=== PATIENT | female | born 1930 | race Caucasian/White ===

== ENCOUNTER 2016-11-01 21:26 | Inpatient (IN) | payer MEDICARE ==
--- NOTE | 2016-11-01 21:49 | Emergency Department Record ---
History of Present Illness - General Chief complaint: GI Bleed Stated complaint: BLOODY STOOL Time Seen by Provider: 11/01/16 21:29 Source: Patient Mode of Arrival: EMS Limitations: No limitations - History of Present Illness Initial comments: 86 yo female presents to ED with a CC of (1) episode of bright red bleeding from the rectum tonight. Patient denies the use of anticoagulation medications , and patient denies abdominal pain symptoms, fevers, chills, or recent illness. Patient does have a history of dementia, history is difficult to obtain. MD complaint: Gross hematochezia Onset/Timin -: Hour(s) Quality: Painless Consistency: Intermittent Improves with: None Worsens with: Bowel movement Associated Symptoms: Denies other symptoms Treatments Prior to Arrival: None - Related Data Home Medications Medication Instructions Recorded Confirmed Last Taken Allopurinol [Zyloprim] 100 mg PO DAILY 09/16/16 11/01/16 1 Day Ago Donepezil HCl 10 mg PO DAILY 09/16/16 11/01/16 1 Day Ago Fosinopril Sodium [Monopril] 20 mg PO DAILY 09/16/16 11/01/16 1 Day Ago Metoprolol Succinate [Toprol Xl] 50 mg PO DAILY 09/16/16 11/01/16 1 Day Ago Rivaroxaban [Xarelto] 15 mg PO DAILY 09/16/16 11/01/16 1 Day Ago Sertraline HCl [Zoloft] 50 mg PO DAILY 09/16/16 11/01/16 1 Day Ago Acetaminophen [Tylenol 325Mg] 325 mg PO Q4H 11/01/16 11/01/16 Unknown Ergocalciferol (Vitamin D2) 1.25 mg PO WEEKLY 11/01/16 11/01/16 Unknown [Vitamin D2] Furosemide 40 mg PO DAILY 11/01/16 11/01/16 Unknown Allergies Allergy/AdvReac Type Severity Reaction Status Date / Time No Known Drug Allergies Allergy Verified 09/16/16 11:51 Review of Systems ROS unobtainable: Due to mental status, Other (History of dementia) Gastrointestinal: Reports: Hematochezia Past Medical History - SOCIAL HISTORY Smoking Status: Never smoker Drug Use: None - RESPIRATORY Hx Respiratory Disorders: No - CARDIOVASCULAR Hx Hypertension: Yes Hx Irregular Heartbeat: Yes - NEURO Hx Dementia: Yes - GI Hx GI Disorders: No - Hx Genitourinary Disorders: No - ENDOCRINE Hx Diabetes: No Hx Thyroid Disease: No - MUSCULOSKELETAL Hx Arthritis: Yes Hx Gout: Yes - PSYCH Hx Depression: Yes - HEMATOLOGY/ONCOLOGY Hx Anemia: No Hx Blood Disorders: No Hx Bruising: No Hx Cancer: Yes (breast) Physical Exam - General General Appearance: Alert, Cooperative, No acute distress Limitations: Altered mental status, Other (history of dementia) - Head Head exam: Atraumatic, Normocephalic, Normal inspection Head exam detail: negative: Abrasion, Contusion, Kaur's sign, General tenderness, Hematoma, Laceration - Eye Eye exam: Normal appearance. negative: Conjunctival injection, Periorbital swelling, Periorbital tenderness, Scleral icterus - ENT Ear exam: negative: Auricular hematoma, Auricular trauma Nasal Exam: negative: Active bleeding, Discharge, Dried blood, Foreign body Mouth exam: negative: Drooling, Laceration, Muffled voice, Tongue elevation - Neck Neck exam: Normal inspection. negative: Meningismus, Tenderness - Respiratory Respiratory exam: Normal lung sounds bilaterally. negative: Respiratory distress, Rhonchi, Stridor, Wheezes - Cardiovascular Cardiovascular Exam: Regular rate, Normal rhythm, Normal heart sounds, Systolic murmur - GI/Abdominal GI/Abdominal exam: Soft. negative: Rebound, Rigid, Tenderness - Rectal Rectal exam: Heme (-) stool, Normal inspection, Normal rectal tone, Tenderness. negative: Hemorrhoids - exam: Deferred - Extremities Extremities exam: negative: Calf tenderness, Pedal edema, Tenderness - Back Back exam: Denies: CVA tenderness (R), CVA tenderness (L) - Neurological Neurological exam: Alert. negative: Motor sensory deficit - Psychiatric Psychiatric exam: Normal affect, Normal mood - Skin Skin exam: Normal color. negative: Abrasion Type of lesion: negative: abrasion Course - Reevaluation(s) Reevaluation #1: 11/01/16 22:28 Labs reviewed, Hgb 11.2 (slightly down from previous 11.8), BUN and Creatinine are elevated but at the patient's baseline. INR 1.5 (on Xarelto). Labs were reviewed, will admit for observation given her anticoagulated status and higher risk of re-bleeding. DPOA was updated on the plan for admission and agrees with the plan as discussed. Reevaluation #2: 11/01/16 22:42 EKG: NSR 56 Low voltage anterior leads Q waves V1-V2, No acute ST-T wave changes. Reevaluation #3: 11/02/16 07:07 Case was discussed with Dr. Scott, will accept admission for further evaluation. Medical Decision Making - Lab Data Result diagrams: 11/02/16 06:00 11/01/16 21:35 Disposition Disposition: Admit Clinical Impression: Lower GI bleed, Anticoagulated by anticoagulation treatment CRF (chronic renal failure) Qualifiers: Chronic kidney disease stage: stage 4 (severe) Qualified Code(s): N18.4 - Chronic kidney disease, stage 4 (severe) Disposition: Still a Patient at [facility] Decision to Admit: Admit from ER Decision to Admit Date: 11/01/16 Decision to Admit Time: 22:30 Time of Disposition: 22:30
[2016-11-01 21:54] LABS: BASO % 0.6 % (0-6); EOS % 4.5 % (0-6); GRAN % 64.6 % (47-80); HEMATOCRIT 34.8 % (35.0-47.0); HEMOGLOBIN 11.2 gm/dl (11.6-16.0); LYMPH % 21.4 % (16-45); MEAN CELL VOLUME 93.8 fl (81-97); MEAN CORPUSCULAR HEMOGLOBIN 30.1 pg (27-33); MEAN CORPUSCULAR HGB CONC 32.2 g/dl (32-36); MEAN PLATELET VOLUME 10.5 fl (7.4-10.4); MONO % 8.9 % (0-9); PLATELET COUNT 154 K/uL (130-400); RED BLOOD COUNT 3.71 M/uL (3.80-5.40); RED CELL DISTRIBUTION WIDTH 15.1 % (11.5-14.5)
[2016-11-01 22:04] LABS: INR 1.5; PROTHROMBIN TIME (PATIENT) 16.9 SECONDS (9.5-12.1)
[2016-11-01 22:05] LABS: ALB/GLOB RATIO 1.3 (1.1-1.8); ANION GAP 12.1 (7-16); BILIRUBIN,TOTAL 0.47 mg/dL (0.2-1.3); CARBON DIOXIDE 19.9 mmol/L (22-30); CREATININE 1.9 mg/dL (0.52-1.04); TOTAL PROTEIN 7.1 gm/dL (6.3-8.2)
[2016-11-02 06:10] LABS: BASO % 0.4 % (0-6); EOS % 5.6 % (0-6); GRAN % 62.6 % (47-80); HEMATOCRIT 33.2 % (35.0-47.0); HEMOGLOBIN 10.9 gm/dl (11.6-16.0); MEAN CELL VOLUME 93.5 fl (81-97); MEAN CORPUSCULAR HEMOGLOBIN 30.7 pg (27-33); MEAN CORPUSCULAR HGB CONC 32.8 g/dl (32-36); MEAN PLATELET VOLUME 10.7 fl (7.4-10.4); MONO % 8.4 % (0-9); PLATELET COUNT 140 K/uL (130-400); RED BLOOD COUNT 3.55 M/uL (3.80-5.40); RED CELL DISTRIBUTION WIDTH 14.9 % (11.5-14.5); WHITE BLOOD COUNT W/O DIFF 8.2 K/uL (4.2-12.2)
[2016-11-02] MEDS: FUROSEMIDE 40 MG TABLET PO SCH (09:34)
[2016-11-02] MEDS: DONEPEZIL HCL 5 MG TABLET PO SCH (09:34)
[2016-11-02] MEDS: METOPROLOL SUCC 50 MG TABLET PO SCH (09:34)
[2016-11-02] MEDS: SERTRALINE HCL 50 MG TABLET PO SCH (09:35)
[2016-11-02] MEDS ORDERED: FOSINOPRIL SODIUM 20 MG TABLET PO SCH (10:00)
[2016-11-02 15:22] LABS: HEMATOCRIT 33.5 % (35.0-47.0); HEMOGLOBIN 10.7 gm/dl (11.6-16.0)
[2016-11-02 23:49] LABS: HEMATOCRIT 33.4 % (35.0-47.0); HEMOGLOBIN 10.8 gm/dl (11.6-16.0)
[2016-11-03 06:29] LABS: HEMATOCRIT 32.5 % (35.0-47.0); HEMOGLOBIN 10.5 gm/dl (11.6-16.0)
[2016-11-03] MEDS ORDERED: PATIENT OWN MED: PO PRN (07:32)
--- NOTE | 2016-11-03 08:21 | History and Physical Report ---
CHIEF COMPLAINT: Lower GI bleed, gross hematochezia. HISTORY OF PRESENT ILLNESS: This 86-year-old female states she had one episode of bright red blood in the stool that she flushed before EMS got there. She presented to the Emergency Department. She denied taking anticoagulants, however, Xarelto is in her med list. She is a poor historian because of dementia. She denies abdominal pain, fever, chills, or recent illness. The rectal exam in the Emergency Department was negative for hemoccult stools, however, nursing was with her and she had one stool that had some blood in the stool which was heme positive. She has no abdominal pain on my examination. She was admitted to the hospital for serial hemoglobins and further evaluation by GI. PAST MEDICAL HISTORY: Dementia, gout, and hypertension. She is on Xarelto, I am not sure of the reason at this time, and we will have to look at the office chart. PAST SURGICAL HISTORY: MEDICATIONS ON ADMISSION: Zyloprim 100 mg q daily, Aricept 10 mg daily, Monopril 20 mg q daily, Toprol XL 50 mg daily, Xarelto 15 mg q daily, Zoloft 50 mg q daily, Tylenol 325 q four hours prn, vitamin D 50,000 units weekly, and Lasix 40 mg q daily. ALLERGIES: No known drug allergies. FAMILY/PSYCHOSOCIAL HISTORY: Unremarkable. REVIEW OF SYSTEMS: HEENT: No upper respiratory infectious symptoms, cough, cold, or congestion. Cardiovascular: No chest pain, palpitations, or arrhythmias. Respiratory: No cough, cold, or congestion. Gastrointestinal: No abdominal pain, but she states she had one bloody stool and she had a bloody stool for nursing which was bright red but not much blood in the stool. Genitourinary: No dysuria, hematuria, frequency, or burning on urination. Musculoskeletal: No joint or bone abnormalities. She does have arthritis in all of her joints. Neurologic: No CVA, paralysis, or paresthesias. She has dementia. She is oriented to person, but not time. She is oriented to place. Gynecological: No abnormal lumps in her breasts or vaginal bleeding. Endocrine : No diabetes or thyroid disease. Integument: No rash, ulcers, change in moles, or yellow skin. PHYSICAL EXAMINATION: Height is 5'6", weight is 200 pounds. Vital signs: Temperature is 97.7, pulse is 55, blood pressure is 132/70, respiratory rate is 20, pulse ox is 95% on room air. HEENT: Pupils are equal, round and reactive to light and accommodation. Extraocular muscles are intact. Throat is clear. Nose is clear. Tympanic membranes are bermudez. NECK: Supple. No jugular venous distention. No hepatojugular reflex. No carotid bruits. Thyroid is smooth. CARDIOVASCULAR: Regular rate and rhythm without murmurs, clicks, rubs or gallops. RESPIRATORY: Clear to auscultation and percussion. ABDOMEN: Soft, nontender. No hepatosplenomegaly. No masses. No tenderness. Bowel sounds are active. No bruits. EXTREMITIES: No pitting edema. No cyanosis. No clubbing. Full range of motion. Peripheral pulses are good. BREASTS: Deferred. GYNECOLOGICAL: Deferred. RECTAL: There is blood on the examining glove. No obvious hemorrhoids. She states she has had problems with rectal prolapse in the past. Vaginal area examined, no blood coming from the vagina. NEUROLOGIC: Cranial nerves II through XII intact. No gross defects. Sensation normal. Strength normal. Deep tendon reflexes equal bilaterally. Babinski's negative. MENTAL STATUS: Alert and oriented times three. IMPRESSION: 1. LOWER GI BLEED. 2. HYPERTENSION. 3. USES XARELTO. 4. DEMENTIA. 5. GOUT. PLAN: Serial hemoglobin and hematocrit, GI consult, possible colonoscopy. ADDENDUM: The patient should have in the past medical history chronic atrial fibrillation and chronic renal failure and she is on Xarelto for her chronic atrial fibrillation. 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 Slim Scott D.O. JOB NUMBER: [id number] [facility]
[2016-11-03] MEDS ORDERED: PROPOFOL 10 MG/ML VIAL IV ONE (14:00)
[2016-11-03] MEDS ORDERED: LIDOCAINE 2% MDV (20MG/ML) 20ML VIAL IV ONE (14:00)
[2016-11-03] MEDS: DONEPEZIL HCL 5 MG TABLET PO SCH (17:15)
[2016-11-03] MEDS: FUROSEMIDE 40 MG TABLET PO SCH (17:15)
[2016-11-03] MEDS: METOPROLOL SUCC 50 MG TABLET PO SCH (17:16)
[2016-11-03] MEDS: SERTRALINE HCL 50 MG TABLET PO SCH (17:16)
[2016-11-03 22:18] LABS: HEMATOCRIT 34.6 % (35.0-47.0)
[2016-11-04 06:20] LABS: HEMATOCRIT 34.2 % (35.0-47.0)
[2016-11-04] MEDS: DONEPEZIL HCL 5 MG TABLET PO SCH (10:00)
[2016-11-04] MEDS: METOPROLOL SUCC 50 MG TABLET PO SCH (10:01)
[2016-11-04] MEDS: FUROSEMIDE 40 MG TABLET PO SCH (10:01)
[2016-11-04] MEDS: SERTRALINE HCL 50 MG TABLET PO SCH (10:01)
--- NOTE | 2016-11-04 11:18 | Discharge Note ---
Discharge Note - Date Date of Discharge Note: 11/04/16 Disposition: Home, Self-Care Condition: (1) Good Additional Instructions: Use Preparation H Hemorrhoidal cream twice a day for one week follow up with Dr. Scott Nov 10, 2016 stop mary outpatient labs on Oct CBC, BMP Diag anemia, rectal bleeding, electrolye disorder and rn long term care meds Forms: Patient Portal Access
--- NOTE | 2016-11-04 12:10 | Medical Records Consult ---
DATE OF CONSULTATION: 11/03/2016 CHIEF COMPLAINT: Hematochezia. HISTORY OF PRESENT ILLNESS: The patient is a pleasant 86-year-old woman who presented with several episodes of hematochezia. This was noted on 11/01/2016 and into 11/02/2016. She denied any abdominal pain or rectal pain with these episodes. She denies any previous history. She denies any nausea, vomiting, constipation, or diarrhea. She denies any obvious exacerbating or remitting factors. PAST MEDICAL HISTORY: Dementia, hypertension, cardiac arrhythmia, depression, arthritis, gout, breast cancer. PAST SURGICAL HISTORY: Noncontributory. FAMILY HISTORY: Noncontributory. HOME MEDICATIONS: 1. Zyloprim. 2. Donepezil. 3. Monopril. 4. Toprol. 5. Xarelto. 6. Zoloft. 7. Tylenol. 8. Vitamin D. 9. Lasix. ALLERGIES: None. SOCIAL HISTORY: Denies tobacco or alcohol or illicit drugs. Travel history is noncontributory. REVIEW OF SYSTEMS: Per the admission H&P. PHYSICAL EXAMINATION: VITAL SIGNS: Blood pressure 150/70, pulse 52-56, respirations 18. She is afebrile. GENERAL: She is awake, alert. She is confused but otherwise pleasant. HEENT: Head is atraumatic, normocephalic. Extraocular muscles are intact. No conjunctival injection or scleral icterus. SKIN: Warm and dry. No pallor or jaundice noted. No rashes are seen. NECK: Supple. Trachea is midline. Thyroid was nonpalpable. HEART: Slightly bradycardic, otherwise regular. No murmurs readily noted. LUNGS: Clear to auscultation without rhonchi, rales, or wheezing. Normal percussion. ABDOMEN: Soft. Positive bowel sounds. No guarding, rebound, rigidity, tenderness, or palpable hepatosplenomegaly. EXTREMITIES: No clubbing, cyanosis, or edema. LABORATORY DATA: On admission, white count 9.0, hemoglobin 11.2, hematocrit 34.8, platelets 154, sodium 141, potassium 4.1, chloride 109, CO2 19.9, BUN 47, creatinine 1.9, glucose 111. PT was 16.9. IMPRESSION: 1. Hematochezia. 2. Possibly anorectal versus diverticular versus polyp versus mass versus AVM. 3. Dementia. 4. Hypertension by history. 5. Arrhythmia. 6. Gout. 7. Arthritis. RECOMMENDATION: Would monitor the hemoglobin serially, transfuse as necessary. We will plan for colonoscopy to evaluate her lower GI tract and assess for etiology. Further recommendations will be forthcoming once colonoscopy results are available. Magnus Gordon DO CC: Dr. Slim BORGES
--- NOTE | 2016-11-04 12:20 | Operative Note ---
DATE OF SURGERY: 11/03/2016 OPERATION: COLONOSCOPY with cold forceps polypectomy. PREOPERATIVE DIAGNOSIS: Hematochezia. POSTOPERATIVE DIAGNOSES: 1. Hemorrhoids, internal greater than external. 2. [id number] sigmoid diverticulosis. 3. Sigmoid colon polyp. 4. No active bleeding. PROCEDURE: After informed consent was obtained from the patient, she was placed in the left lateral decubitus position in the endoscopy suite, sedated and monitored by the department of anesthesia. Digital rectal exam was unremarkable. A well-lubricated [id number] colonoscope was inserted into the rectum and advanced to the cecum. Preparation quality was good to excellent. The cecum, glimpses of terminal ileum, ascending colon, transverse colon, and descending colon were unremarkable. No polyps, mass lesions, or inflammation was seen. No fresh or old blood was seen. There were a few scattered diverticula in the descending colon but there were severe diverticular changes in the sigmoid colon. There was also a 3-4 mm polyp in the sigmoid colon removed in piecemeal fashion with a cold forceps with minimal bleeding noted. The rectum was unremarkable in forward view but J-turn views did reveal internal greater than external hemorrhoids. The endoscope was straightened, the rectal ampulla deflated, and the endoscope was removed. It should be noted there was no active bleeding seen throughout the colon. No fresh or old blood was seen throughout the colon. At this point I presume the patient either had diverticular hemorrhage or perhaps even had hemorrhoidal source for her bleeding. No further intervention will be suggested at this time other than having the patient follow a high-fiber diet. As always, thank you for allowing me to participate in the health care of your patients. Magnus Gordon DO CC: Dr. Slim BORGES
--- NOTE | 2016-11-04 12:57 | Discharge Summary ---
DATE OF DISCHARGE: 11/04/2016 at 11:23 a.m. DISCHARGE DIAGNOSES: 1. Lower gastrointestinal bleed. 2. Hemorrhoidal bleeding. 3. A history of chronic atrial fibrillation which has converted to normal sinus rhythm. She was on Xarelto which is probably part of the reason for bleeding. We will stop the Xarelto at this time. 4. Dementia. 5. Gout. 6. Hypertension. 7. Chronic renal failure. 8. Osteoarthritis of the lumbar spine. ATTENDING PHYSICIAN: Slim Scott D.O. REASON FOR HOSPITALIZATION: Lower gastrointestinal bleed, gross hematochezia. HISTORY OF THE PRESENT ILLNESS: This 86-year-old female presented with one episode of bright red blood. The ambulance was called. She had already flushed the toilet before they got there. She was seen in the emergency room and was evaluated by Dr. [place]. She was admitted to the hospital for serial hemoglobins and further evaluation. She denied any abdominal pain, fever, chills, or recent illness. SIGNIFICANT FINDINGS FROM HER EXAMINATION: LABORATORY DATA: Her stool in the hospital was Hemoccult positive with a small amount of blood. Hemoglobin had dropped down from 11.2 in the emergency department to 10.8 and then rebounded up to 11. Her white blood cell count was 9,000. Potassium was 4.1. BUN was 47 and creatinine was 1.9. CONSULTATION: She had a consultation with GI. I prepped her for a colonoscopy. She had a colonoscopy performed which showed a polyp which was removed. She also had hemorrhoids which is most likely the source of her bleeding. HOSPITAL COURSE: Uneventful. She is improved and stable. CONDITION AT DISCHARGE: Much improved. Her discharge hemoglobin is 11.0. DISCHARGE INSTRUCTIONS: Follow up with Dr. Scott on November 10 at about 10: 00 a.m. Stop her Xarelto. Outpatient labs with a complete blood count and a basic metabolic profile on November 08. We may be able to stop the Lasix. We will have to watch her blood pressure and for any peripheral edema. MEDICATIONS ON DISCHARGE: 1. Aricept 10 mg q. h.s. 2. Lasix 40 mg q. daily, 3. Toprol-XL 50 mg q. daily. 4. Zoloft 50 mg q. daily. 5. Monopril 20 mg q. daily. 6. Vitamin D 50,000 units one weekly. 7. Zyloprim 100 mg q. daily. 8. Use Preparation H cream twice a day for her hemorrhoids [id number]. Slim Scott D.O. Date Time JOB NUMBER: [id number] [facility]TD[facility]
== END 2016-11-04 13:19 | disposition home or self-care (01) | DRG 379 ==
LOC: ER 21:26 → OBSVTOIN 23:00 → MEDSURG 23:00
PROVIDERS: ADMIT Emergency Medicine; ATTEND Emergency Medicine
PROC: 0DBN8ZZ Excision of Sigmoid Colon, Via Natural or Artificial Opening Endoscopic (ICD-10-PCS; principal; 2016-11-03)
DX: K92.1 Melena (principal); T45.515A Adverse effect of anticoagulants, initial encounter; I10 Essential (primary) hypertension; K64.8 Other hemorrhoids; D12.5 Benign neoplasm of sigmoid colon; K57.30 Diverticulosis of large intestine without perforation or abscess without bleeding; I48.2 Chronic atrial fibrillation; Z79.01 Long term (current) use of anticoagulants; N18.9 Chronic kidney disease, unspecified; M47.9 Spondylosis, unspecified; M10.9 Gout, unspecified; F03.90 Unspecified dementia, unspecified severity, without behavioral disturbance, psychotic disturbance, mood disturbance, and anxiety
CPT/HCPCS: 80053; 82272; 85014; 85018; 85025; 85610; 93005; 93010; 99285

== ENCOUNTER 2017-06-04 17:31 | Observation (INO) | payer MEDICARE ==
--- NOTE | 2017-06-04 18:18 | Emergency Department Record ---
History of Present Illness - General Chief Complaint: Altered Mental Status Stated Complaint: ALTERNED LEVEL CONSCIENESS Time Seen by Provider: 06/04/17 18:07 Source: Family, EMS, Old records reviewed Mode of Arrival: Ambulatory Limitations: Altered mental status - History of Present Illness Initial Comments: pt brought in by ems because nighttime caregiver came and found pt to be hard to arouse and decreased loc. when pt arrived in dept she was more alert, sitting up in bed but confused. pt denies pain. pt was d/w pts granddaughter who is her poa and she said pt is more confused over the last 2 weeks. pt lives alone and has alzheimers. MD Complaint: Altered mental status Onset/Timin -: Unknown Consistency: Other (getting better) Associated Symptoms: Denies other symptoms, Malaise, Weakness Treatments Prior to Arrival: IV fluid - [place] Coma Scale Eye Response: (4) Open spontaneously Motor Response: (6) Obeys commands Verbal Response: (4) Confused conversation [place] Total: 14 - Symptoms of Stroke Symptoms of stroke: Onset of Confusion, Unable to Think Clearly - Related Data Home Medications Medication Instructions Recorded Confirmed Last Taken Allopurinol [Zyloprim] 200 mg PO DAILY 09/16/16 06/04/17 1 Day Ago ~09/15/16 Donepezil HCl 10 mg PO DAILY 09/16/16 06/04/17 1 Day Ago ~09/15/16 Fosinopril Sodium [Monopril] 20 mg PO DAILY 09/16/16 06/04/17 1 Day Ago ~09/15/16 Metoprolol Succinate [Toprol Xl] 50 mg PO DAILY 09/16/16 06/04/17 1 Day Ago ~09/15/16 Sertraline HCl [Zoloft] 50 mg PO DAILY 09/16/16 06/04/17 1 Day Ago ~09/15/16 Acetaminophen [Tylenol 325Mg] 325 mg PO BID 11/01/16 06/04/17 Unknown Ergocalciferol (Vitamin D2) 1.25 mg PO WEEKLY 11/01/16 06/04/17 Unknown [Vitamin D2] Furosemide 40 mg PO DAILY 11/01/16 06/04/17 Unknown Allergies Allergy/AdvReac Type Severity Reaction Status Date / Time No Known Drug Allergies Allergy Verified 09/16/16 11:51 Travel Screening - Travel/Exposure Within Last 30 Days Have you traveled within the last 30 days?: No - Travel/Exposure Within Last Year Have you traveled outside the [place] in the last year?: No - Additonal Travel Details Have you been exposed to anyone with a communicable illness?: No Review of Systems ROS unobtainable: Due to mental status Past Medical History - SOCIAL HISTORY Smoking Status: Never smoker Alcohol Use: None Drug Use: None - RESPIRATORY Hx Respiratory Disorders: No - CARDIOVASCULAR Hx Cardio Disorders: Yes Hx Hypertension: Yes Hx Irregular Heartbeat: Yes - NEURO Hx Neuro Disorders: Yes Hx Dementia: Yes - GI Hx GI Disorders: No Comment:: rectal prolapse - Hx Genitourinary Disorders: No - ENDOCRINE Hx Endocrine Disorders: No Hx Diabetes: No Hx Thyroid Disease: No - MUSCULOSKELETAL Hx Musculoskeletal Disorders: Yes Hx Arthritis: Yes Hx Gout: Yes - PSYCH Hx Psych Problems: Yes Hx Depression: Yes - HEMATOLOGY/ONCOLOGY Hx Hematology/Oncology Disorders: No Hx Anemia: No Hx Blood Disorders: No Hx Bruising: No Hx Cancer: Yes (breast) Family Medical History Any Significant Family History?: No Physical Exam - General General Appearance: Alert, Mild distress - Head Head exam: Normal inspection - Eye Eye exam: Normal appearance, PERRL, EOMI Pupils: Normal accommodation - ENT ENT exam: Normal exam, Mucous membranes moist, Normal external ear exam, Normal orophraynx Ear exam: Normal external inspection. negative: External canal tenderness Nasal Exam: Normal inspection. negative: Discharge, Sinus tenderness Mouth exam: Normal external inspection, Tongue normal Teeth exam: Normal inspection. negative: Dental caries Throat exam: Normal inspection. negative: Tonsillar erythema, Tonsillar exudate - Neck Neck exam: Normal inspection, Full ROM. negative: Tenderness - Respiratory Respiratory exam: Normal lung sounds bilaterally. negative: Respiratory distress - Cardiovascular Cardiovascular Exam: Regular rate, Normal rhythm, Normal heart sounds - GI/Abdominal GI/Abdominal exam: Soft, Normal bowel sounds. negative: Tenderness - Rectal Rectal exam: Deferred - exam: Deferred - Extremities Extremities exam: Normal inspection, Full ROM, Normal capillary refill. negative: Tenderness - Back Back exam: Reports: Normal inspection, Full ROM. Denies: Muscle spasm, Rash noted, Tenderness - Neurological Neurological exam: Altered, CN II-XII intact - Psychiatric Psychiatric exam: Normal affect, Normal mood - Skin Skin exam: Dry, Intact, Normal color, Warm Course Vital Signs 06/04/17 17:37 Temperature 98.3 F Pulse Rate 66 Respiratory 18 Rate Blood Pressure 167/88 Pulse Ox 100 Medical Decision Making - Lab Data Result diagrams: 06/04/17 18:00 06/04/17 18:00 Disposition Disposition: Admit Clinical Impression: Altered level of consciousness Disposition: Still a Patient at [facility] Decision to Admit: Admit from ER Decision to Admit Date: 06/04/17 Decision to Admit Time: 19:23 Forms: Patient Portal Access Quality - Quality Measures Quality Measures: N/A - Blood Pressure Screening Blood Pressure Classification: Pre-Hypertensive BP Reading Systolic Measurement: 167 Diastolic Measurement: 88 Screening for High Blood Pressure: < First Hypertensive BP, F/U Documented > [ [id number]] First Hypertensive Follow-up Interventions: Follow-up with rescreen GT 1 day and LT 4 weeks.
[2017-06-04 18:26] LABS: BASO % 0.3 % (0-6); EOS % 3.4 % (0-6); GRAN % 74.4 % (47-80); HEMATOCRIT 36.5 % (35.0-47.0); HEMOGLOBIN 11.8 gm/dl (11.6-16.0); LYMPH % 13.9 % (16-45); MEAN CELL VOLUME 93.1 fl (81-97); MEAN CORPUSCULAR HEMOGLOBIN 30.1 pg (27-33); MEAN CORPUSCULAR HGB CONC 32.3 g/dl (32-36); MEAN PLATELET VOLUME 11.1 fl (7.4-10.4); PLATELET COUNT 164 K/uL (130-400); RED BLOOD COUNT 3.92 M/uL (3.80-5.40); WHITE BLOOD COUNT W/O DIFF 9.6 K/uL (4.2-12.2)
[2017-06-04 18:37] LABS: ALB/GLOB RATIO 1.2 (1.1-1.8); ANION GAP 8.9 (7-16); BILIRUBIN,TOTAL 0.99 mg/dL (0.2-1.3); CARBON DIOXIDE 21.1 mmol/L (22-30); CREATININE 1.7 mg/dL (0.52-1.04); TOTAL PROTEIN 7.3 gm/dL (6.3-8.2)
[2017-06-04] MEDS ORDERED: 0.9 % SODIUM CHLORIDE 1,000 ML BAG IV ONE (19:19)
[2017-06-04 19:26] LABS: AMPHETAMINE SCREEN URINE NOT DETECTED; BARBITURATE SCREEN URINE NOT DETECTED; BENZODIAZEPINE SCREEN URINE NOT DETECTED; COCAINE SCREEN URINE NOT DETECTED; METHADONE SCREEN URINE NOT DETECTED; METHAMPHETAMINE SCREEN NOT DETECTED; OPIATE SCREEN URINE NOT DETECTED; OXYCODONE SCREEN URINE NOT DETECTED; PHENCYCLIDINE SCREEN URINE NOT DETECTED; PROPOXYPHENE SCREEN URINE NOT DETECTED; THC SCREEN URINE NOT DETECTED; TRICYCLIC ANTIDEPRESSANT SCRN NOT DETECTED
[2017-06-04 19:26] LABS: URINE APPEARANCE CLEAR; URINE BILIRUBIN NEGATIVE (NEGATIVE); URINE BLOOD NEGATIVE (NEGATIVE); URINE COLOR YELLOW; URINE GLUCOSE (UA) NEGATIVE (NEGATIVE); URINE KETONE NEGATIVE (NEGATIVE); URINE LEUKOCYTE ESTERASE NEGATIVE (NEGATIVE); URINE NITRITE NEGATIVE (NEGATIVE); URINE UROBILINOGEN 0.2 E.U./dL (0.20 - 1.00)
[2017-06-05] MEDS: ACETAMINOPHEN 325 MG TAB PO SCH ×2 (02:35→09:24)
--- NOTE | 2017-06-05 07:44 | CT SCAN REPORT ---
EXAM: CT SCAN OF THE BRAIN WITHOUT CONTRAST HISTORY: CONFUSION AND ALTERED MENTAL STATUS. TECHNIQUE: Standard CT imaging of the brain was performed without contrast. Additional coronal and sagittal reformatted images were also performed. Comparison: 09/16/16. FINDINGS: There is mild atrophy. The ventricles and cortical sulci are otherwise normal. Mild chronic small vessel ischemic changes are present within the periventricular and subcortical white matter at both cerebral hemispheres and appear unchanged. There is no mass, mass effect, intracranial hemorrhage, visible acute infarct, or abnormal extraaxial fluid. The skull is intact. The orbits and sinuses are normal. There is a small amount of nonspecific fluid within the right mastoid air cells which appears unchanged. IMPRESSION: 1. NO ACUTE INTRACRANIAL ABNORMALITY OR SKULL FRACTURE. 2. MILD ATROPHY AND CHRONIC SMALL VESSEL ISCHEMIC CHANGES. JOB NUMBER: [id number] [facility]
[2017-06-05] MEDS ORDERED: CLONIDINE TTS-0.1MG PATCH TD SCH (08:15)
[2017-06-05] MEDS ORDERED: DONEPEZIL HCL 5 MG TABLET PO SCH (10:00)
[2017-06-05] MEDS ORDERED: SERTRALINE HCL 50 MG TABLET PO SCH (10:00)
[2017-06-05] MEDS ORDERED: METOPROLOL SUCC 50 MG TABLET PO SCH (10:00)
[2017-06-05] MEDS ORDERED: ALLOPURINOL 100 MG TAB PO SCH (10:00)
[2017-06-05] MEDS ORDERED: FUROSEMIDE 40 MG TABLET PO SCH (10:00)
[2017-06-05] MEDS ORDERED: FOSINOPRIL SODIUM 20 MG TABLET PO SCH (10:00)
--- NOTE | 2017-06-05 13:09 | Discharge Note ---
VTE H&P Assessment - Risk for VTE Risk for VTE: Yes Risk Level: Very Low Risk Assessment Date: 06/05/17 Risk Assessment Time: 08:15 VTE Orders Placed or Will Be Placed: No VTE Reason for No Prophylaxis: Not Indicated (not in the hospital long enough) Discharge Medications - Discharge Medications Prescriptions: Clonidine Tts-1 [Catapres] 1 each TD Q7D #4 Sertraline HCl [Zoloft] 25 mg PO DAILY #30 tablet Home Medications: Ambulatory Orders Allopurinol [Zyloprim] 200 mg PO DAILY 09/16/16 [Last Taken 1 Day Ago ~09/15/16] Donepezil HCl 10 mg PO DAILY 09/16/16 [Last Taken 1 Day Ago ~09/15/16] Fosinopril Sodium [Monopril] 20 mg PO DAILY 09/16/16 [Last Taken 1 Day Ago ~] Metoprolol Succinate [Toprol Xl] 50 mg PO DAILY 09/16/16 [Last Taken 1 Day Ago ~ 09/15/16] Acetaminophen [Tylenol 325Mg] 325 mg PO BID 11/01/16 [Last Taken Unknown] Ergocalciferol (Vitamin D2) [Vitamin D2] 1.25 mg PO WEEKLY 11/01/16 [Last Taken Unknown] Clonidine Tts-1 [Catapres] 1 each TD Q7D #4 06/05/17 [Last Taken Unknown] Sertraline HCl [Zoloft] 25 mg PO DAILY #30 tablet 06/05/17 [Last Taken Unknown] Discharge Note - Date Date of Discharge Note: 06/05/17 Disposition: Home, Self-Care Condition: (1) Good Additional Instructions: follow up with Dr. Scott in one week on monday AM decrease zoloft to 25 mg per day(one half of 50 mg) or use the new script clonidine patches one a week for BP control stop lasix (furosemide) Son is trying to set up more assistance in living Forms: Patient Portal Access
--- NOTE | 2017-06-06 11:10 | History and Physical Report ---
CHIEF COMPLAINT: Decreased level of consciousness. Her caregiver felt she was more confused than usual. The granddaughter said that she has been more confused over the last 2 weeks. She lives alone and has Alzheimer's. She was evaluated by Dr. Thurman in the emergency department who admitted her for altered level of consciousness, which has improved in the emergency department back to her baseline. She was placed in general regular admission. However, after my evaluation, she has been changed down to an observation patient. MEDICATIONS: On admission she is on: 1. Aricept 10 mg daily. 2. Allopurinol 200 mg daily. 3. Tylenol 325 b.i.d. p.r.n. 4. Toprol-XL 50 mg daily. 5. Monopril 20 mg daily. 6. Vitamin D2, 70,000 units weekly. 7. Sertraline 50 mg daily. It is a little confusing. I am not sure if she is on 50 or 25. She was on 50 when she came in. 8. Clonidine patch was started during this admission, so she is not on that with her home medication. PAST MEDICAL HISTORY: History of paroxysmal atrial fibrillation. She was on Xarelto, had a GI bleed and has been off the Xarelto since that time back in October 2016. ALLERGIES: No known drug allergies. FAMILY PSYCHOSOCIAL HISTORY: Unremarkable. REVIEW OF SYSTEMS: HEENT: No upper respiratory infection symptoms, cough, cold, or congestion. Cardiovascular: No chest pain, palpitations, arrhythmias. Respiratory: No cough, cold, or congestion. Gastrointestinal: No abdominal pain but she states that she had a bowel movement yesterday. Genitourinary: No dysuria, hematuria, or frequency or burning on urination. Musculoskeletal: No joint or bone abnormalities. She does have some arthritis in all her joints but she is able to ambulate around the room without difficulties. Neurological: No CVA, paralysis, or paresthesias. She has dementia. She is oriented to person only but not to time or place. PUBLIC SERVICES LIBRARIAN: No abnormal lumps in her breasts or vaginal bleeding. Endocrine: No diabetes or thyroid disease. Integument: No rash, ulcerative change in moles, or yellow skin. PHYSICAL EXAMINATION: VITAL SIGNS: Height 5 feet 4 inches, weight 188 pounds, temperature when she came in was 98.8, pulse 63, blood pressure 180/77, respiratory rate 24. HEENT: Pupils are equal, round, and reactive to light and accommodation. Extraocular muscles intact. Throat is clear. Nose is clear. Tympanic membranes are bermudez. NECK: Supple. No jugular venous distention or hepatojugular reflux. No carotid bruits. Thyroid is smooth. CARDIOVASCULAR: Regular rate and rhythm without murmurs, clicks, rubs, or gallops. RESPIRATORY: Clear to auscultation. Breath sounds equal bilaterally. ABDOMEN: Soft, nontender. No hepatosplenomegaly. No masses. No tenderness. Bowel sounds active. No bruits. EXTREMITIES: No pitting edema. No cyanosis. No clubbing. Full range of motion. Peripheral pulses good. BREASTS/GYNECOLOGICAL/RECTAL. Exams deferred. NEUROLOGIC: Cranial nerves II-XII intact. No gross defects. Sensation normal. Strength normal. Deep tendon reflexes equal bilaterally. Babinski negative. MENTAL STATUS: Alert to person only but not to time or place. IMPRESSION: 1. Dementia. 2. Dehydration. 3. Hypertension, slightly out of control. PLAN: Add a clonidine patch, TTS-1. Discontinue the Lasix. Continue other home medications. MTDD
--- NOTE | 2017-06-08 16:51 | Discharge Summary ---
OBSERVATION PATIENT DATE OF DISCHARGE: 06/05/2017 DISCHARGE DIAGNOSES: 1. Dementia. 2. Dehydration. 3. Hypertension. 4. History of gout. 5. History of paroxysmal atrial fibrillation, and she is off blood thinners at this point because in October 2016 she had a GI bleed on Xarelto, and she is in a normal sinus rhythm now. ATTENDING PHYSICIAN: Slim cSott DO REASON FOR HOSPITALIZATION: This 87-year-old female had increased confusion, and was found by the caregiver as being weak and more confused. The granddaughter said she had been more confused the last 2 weeks. They brought her in for evaluation. Dr. Thurman evaluated her, and admitted her to the hospital because of dehydration, dementia, and decreased level of consciousness, which has resolved in the Emergency Department. They did not a really good place to send her, because she lives alone and has dementia. SIGNIFICANT FINDINGS: The head CT was unremarkable. No acute intracranial abnormalities or skull fracture. Mild atrophy and chronic small-vessel ischemic changes. LABORATORY WORK: The WBC was 9600. Hemoglobin 11.8. The potassium was 4. BUN was 37. Creatinine was 1.7. Her urine was negative for an infection. Her specific gravity was 1015. She does have some protein in her urine, and a urine drug screen was negative. Sodium was 144. Glucose was 91. THERAPY PROVIDED: She was given IV fluids. The Lasix was stopped. She was started on a clonidine patch TTS-1 once a week. Continue her other home medications. HOSPITAL COURSE: Improved dramatically. Up walking around the room. Eating appropriately. [place] going to take her back to her house, and the son in [place] is planning to set up more assistance, possibly assisted living or an adult foster penitentiary. CONDITION AT DISCHARGE: Much improved. DISCHARGE INSTRUCTIONS: Follow up with Dr. Scott in 1 week. Continue the clonidine patch TTS-1 once a week. Will decrease the Zoloft to 25 mg daily, in case this is making her tired. She is currently not tired with a 50 mg pill that she had today, but the foster daughter was concerned that it might be making her tired and more confused. Discontinue the Lasix and continue her other home medications, which are Aricept 10 mg daily, allopurinol 200 mg daily, Tylenol p.r.n., metoprolol XL at 50 mg a day, Monopril at 20 mg a day, vitamin D2 once a week. Sertraline will be cut back to 25 mg a day. MTDD
== END 2017-06-05 13:20 | disposition home or self-care (01) ==
LOC: ER 17:31 → INTOOBSV 21:07 → MEDSURG 21:07
PROVIDERS: ADMIT Emergency Medicine; ATTEND Emergency Medicine
DX: E86.0 Dehydration (principal); F03.90 Unspecified dementia, unspecified severity, without behavioral disturbance, psychotic disturbance, mood disturbance, and anxiety; F06.8 Other specified mental disorders due to known physiological condition; F05 Delirium due to known physiological condition; I10 Essential (primary) hypertension; M1A.9XX0 Chronic gout, unspecified, without tophus (tophi); I48.0 Paroxysmal atrial fibrillation
CPT/HCPCS: 70450; 80053; 80305; 81003; 85025; 99220; J7030